=== PATIENT | female | born 1965 | race Caucasian/White ===

== ENCOUNTER 2020-10-01 18:21 | Emergency (ER) | payer BC, OTHER ==
[~2020-10-01] VITALS: Ht 182.9 cm; Wt 118.0 kg
[2020-10-01] MEDS ORDERED: GELATIN SPONGE SIZE 12-7MM SPONGE. ONE (18:41)
[2020-10-01] MEDS ORDERED: EPINEPHrine SYRINGE 1 MG/10 ML SYRINGE ONE (18:42)
[2020-10-01] MEDS ORDERED: ACETAMINOPHEN 500 MG TABLET PO ONE (19:15)
[2020-10-01] MEDS ORDERED: FAMOTIDINE 20 MG/2 ML VIAL IVP ONE (19:15)
[2020-10-01] MEDS ORDERED: diphenhydrAMINE 50 MG/ML VIAL IV ONE (19:15)
[2020-10-01] MEDS ORDERED: IV RINGERS SOLUTION,LACTATED 1,000 ML IV SCH (19:15)
[2020-10-01] MEDS ORDERED: MORPHINE SULFATE 10 MG/ML SYRINGE. SQ ONE (19:15)
[2020-10-01 19:22] LABS: BASO # 0.2 x10^3/uL (0.0-0.2); BASO % 1 % (0-3); EOS # 0.7 x10^3/uL (0.0-0.7); EOS % 5 % (0-3); HEMATOCRIT 37.2 % (36.0-47.0); HEMOGLOBIN 12.5 g/dL (12.0-15.5); LYMPH # 4.3 x10^3/uL (1.0-4.8); LYMPH % 29 % (24-48); MEAN CORPUSCULAR HEMOGLOBIN 30 pg (25-35); MEAN CORPUSCULAR HGB CONC 34 g/dL (31-37); MEAN CORPUSCULAR VOLUME 90 fL (79-100); MONO # 1.3 x10^3/uL (0.0-1.1); MONO % 9 % (0-9); NEUT # 8.4 x10^3uL (1.8-7.7); NEUT % 56 % (31-73); PLATELET COUNT 342 x10^3/uL (140-400); RED BLOOD COUNT 4.16 x10^6/uL (3.50-5.40); RED CELL DISTRIBUTION WIDTH 14.3 % (11.5-14.5); WHITE BLOOD COUNT 14.8 x10^3/uL (4.0-11.0)
[2020-10-01 19:26] LABS: CALCIUM 9.6 mg/dL (8.5-10.1); GFR 57.8
[2020-10-01] MEDS: IV NORMAL SALINE 1,000ML 1,000 ML IV SCH ×2 (19:27→20:21)
[2020-10-01 19:32] LABS: ALBUMIN 3.7 g/dL (3.4-5.0); DIRECT BILIRUBIN 0.1 mg/dL (0.0-0.2); TOTAL BILIRUBIN 0.4 mg/dL (0.2-1.0); TOTAL PROTEIN 7.9 g/dL (6.4-8.2)
[2020-10-01] MEDS ORDERED: ONDANSETRON PF 4 MG/2 ML VIAL. ONE (19:41)
[2020-10-01] MEDS ORDERED: GELATIN SPONGE SIZE 12-7MM SPONGE. TP ONE (20:00)
[2020-10-01] MEDS ORDERED: TRANEXAMIC ACID 1,000 MG in IV NORMAL SALINE 250ML 250 ML IV ONE (20:00)
[2020-10-01] MEDS ORDERED: TRANEXAMIC ACID 1,000 MG/10 ML VIAL. ONE (20:02)
[2020-10-01] MEDS ORDERED: IV NORMAL SALINE 250ML 250 ML ONE (20:02)
[2020-10-01 21:06] VITALS: BP 142/69
[2020-10-01] MEDS ORDERED: ONDANSETRON PF 4 MG/2 ML VIAL. IVP ONE (21:15)
[2020-10-01 21:21] VITALS: BP 150/75
[2020-10-01 21:34] LABS: BASO # 0.1 x10^3/uL (0.0-0.2); BASO % 1 % (0-3); EOS # 0.6 x10^3/uL (0.0-0.7); EOS % 4 % (0-3); HEMATOCRIT 24.3 % (36.0-47.0); LYMPH # 5.2 x10^3/uL (1.0-4.8); LYMPH % 34 % (24-48); MEAN CORPUSCULAR HEMOGLOBIN 30 pg (25-35); MEAN CORPUSCULAR HGB CONC 33 g/dL (31-37); MEAN CORPUSCULAR VOLUME 91 fL (79-100); MONO # 1.4 x10^3/uL (0.0-1.1); MONO % 9 % (0-9); NEUT # 7.9 x10^3uL (1.8-7.7); NEUT % 52 % (31-73); PLATELET COUNT 287 x10^3/uL (140-400); RED BLOOD COUNT 2.66 x10^6/uL (3.50-5.40); RED CELL DISTRIBUTION WIDTH 14.6 % (11.5-14.5); WHITE BLOOD COUNT 15.3 x10^3/uL (4.0-11.0)
[2020-10-01 21:44] LABS: HEMOGLOBIN 7.9 g/dL (12.0-15.5)
[2020-10-01 22:12] LABS: % BANDS 70 % (0-9); % BASOS 6 % (0-3); % EOS 21 % (0-5); % MYELOS 3 % (0-0); PLT ESTIMATE ADEQUATE (ADEQUATE)
--- NOTE | 2020-10-02 01:54 | PHYS DOC ---
Past History Past Medical History: Asthma, Diabetes, High Cholesterol, Hypertension Past Surgical History: Other Additional Past Surgical Histo: Loop procedure Alcohol Use: None Drug Use: None General Adult EDM: Chief Complaint: POST-OP PROBLEM HPI: HPI: ".. I had a surgery to remove some abnormal cells on my cervical area after an abnormal Pap smear... My surgery was back on the 09/18 of last month.. Did have a little spotting but seemed to recover okay.. This week again a couple more times of spotting.... But I was just sitting there watching... My nice's so ftball game... And all of a sudden I felt my pants were wet.. I looked down and I had blood clear to my pants and onto the seat... And I ve been bleeding ever since..." " and now I am having some lower pelvic pain... My jeans were soaked in blood by the time I got here... It worst than any period .. I ve ever had...".." This crazy..." Patient is a 55 year old female who presents with acute onset of copious vaginal bleeding and lower abdomen cramping. Patient reportedly had a procedure the remove abnormal cells on her cervix on the 09/[address] Verma at [facility] on [facility]. Patient states they did have to dilate her cervix to get some area of abnormal cells. Reportedly initially everything went well with the surgery. Patient has no history of coagulopathy with her or family members. Patient does not use excessive NSAIDs. Patient not taking any over the counter medical supplements or herbal teas etc. Patient denies any trauma. Patient denies any sexual activity since surgery. Patient does have a history of diabetes and hypertension. Patient denies any history of STDs. Patient denies any history of immunosuppression. No recent travel. No history of fever or chills. Has followed with Dr. Simpson.. but primary is Dr. Mtz. Patient has soaked a blue pad with blood by the time I got into pt. room. Patient last ate a meal at noon. Review of Systems: Review of Systems: Constitutional: Denies fever or chills Eyes: Denies change in visual acuity HENT: Denies nasal congestion or sore throat Respiratory: Denies cough or shortness of breath Cardiovascular: Denies chest pain or edema GI: Complains of lower pelvic abdominal pain and that vaginal bleeding. Nausea, vomiting, bloody stools or diarrhea : Denies dysuria Musculoskeletal: Denies back pain or joint pain Integument: Denies rash Neurologic: Denies headache, focal weakness or sensory changes Endocrine: Denies polyuria or polydipsia Lymphatic: Denies swollen glands Psychiatric: Denies depression or anxiety Family History: Family History: Noncontributory Current Medications: Current Meds: Current Medications Medications (Trade) Dose Ordered Sig/Rosa Elena Start Time Stop Time Status Last Admin Dose Admin Acetaminophen (Tylenol) 1,000 mg 1X ONCE 10/01/20 19:15 10/01/20 19:23 DC 10/01/20 19:37 1,000 MG Diphenhydramine HCl (Benadryl) 50 mg 1X ONCE 10/01/20 19:15 10/01/20 19:23 DC 10/01/20 19:29 50 MG Epinephrine HCl (EPINEPHrine AMPULE) 1 mg 1X ONCE 10/01/20 19:15 10/01/20 19:22 DC 10/01/20 19:37 1 MG Epinephrine HCl (EPINEPHrine SYRINGE) 1 mg STK-MED ONCE 10/01/20 18:42 10/01/20 18:42 DC Famotidine (Pepcid Vial) 20 mg 1X ONCE 10/01/20 19:15 10/01/20 19:22 DC 10/01/20 19:28 20 MG Gelatin (Gelfoam Size 12-7mm) 1 each 1X ONCE 10/01/20 20:00 10/01/20 20:01 DC Lactated Ringer's 1,000 ml @ 1,000 mls/hr Q1H 10/01/20 19:15 10/01/20 20:14 DC 10/01/20 19:15 1,000 MLS/HR Morphine Sulfate (Morphine 10mg Syringe) 10 mg 1X ONCE 10/01/20 19:15 10/01/20 19:22 DC 10/01/20 19:36 10 MG Ondansetron HCl (Zofran) 8 mg 1X ONCE 10/01/20 21:15 10/01/20 21:17 DC 10/01/20 21:12 8 MG Sodium Chloride 250 ml @ As Directed STK-MED ONCE 10/01/20 20:02 10/01/20 20:02 DC Tranexamic Acid (Cyklokapron) 1,000 mg STK-MED ONCE 10/01/20 20:02 10/01/20 20:02 DC Tranexamic Acid 1000 mg/Sodium Chloride 260 ml @ 0 mls/hr 1X PERIOP ONCE 10/01/20 20:00 10/01/20 20:01 DC 10/01/20 20:16 500 MLS/HR Allergies: Allergies: Allergies Coded Allergies Type Severity Reaction Last Updated Verified codeine Allergy Intermediate rash 02/06/14 No Physical Exam: PE: Constitutional: in acute distress, non-toxic appearance. [] HENT: Normocephalic, atraumatic, bilateral external ears normal, oropharynx moist, no oral exudates, nose normal. [] Eyes: PERRLA, EOMI, conjunctiva normal, no discharge. [] Neck: Normal range of motion, no tenderness, supple, no stridor. [] Cardiovascular: Tachycardia heart rate regular rhythm, no murmur [] Lungs & Thorax: Bilateral breath sounds equal apex with scattered wheezes on auscultation [] Abdomen: Bowel sounds decreased, soft, lower pelvic tenderness, no masses, no pulsatile masses. Pelvic exam shows copious arterial bleeding from os. No rectal bleeding. Did use Gelfoam and a Kerlix gauze soaked in 1 amp of e pinephrine to pack vaginal area. Patient did continue to bleed around packing. Patient continued to soak through ABD pads. Skin: Warm, dry, no erythema, no rash. No petechiae. No excessive ecchymosis. Pale. Back: No tenderness, no CVA tenderness. [] Extremities: No tenderness, no cyanosis, no clubbing, ROM intact, no edema. [] Neurologic: Alert and oriented X 3, normal motor function, normal sensory function, no focal deficits noted. [] Psychologic: Affect anxious, judgement normal, mood normal. [] Current Patient Data: Labs: Laboratory Tests Test 10/01/20 18:31 10/01/20 21:00 White Blood Count 14.8 x10^3/uL (4.0-11.0) H 15.3 x10^3/uL (4.0-11.0) H Red Blood Count 4.16 x10^6/uL (3.50-5.40) 2.66 x10^6/uL (3.50-5.40) L Hemoglobin 12.5 g/dL (12.0-15.5) 7.9 g/dL (12.0-15.5) #L Hematocrit 37.2 % (36.0-47.0) 24.3 % (36.0-47.0) L Mean Corpuscular Volume 90 fL (79-100) 91 fL (79-100) Mean Corpuscular Hemoglobin 30 pg (25-35) 30 pg (25-35) Mean Corpuscular Hemoglobin Concent 34 g/dL (31-37) 33 g/dL (31-37) Red Cell Distribution Width 14.3 % (11.5-14.5) 14.6 % (11.5-14.5) H Platelet Count 342 x10^3/uL (140-400) 287 x10^3/uL (140-400) Neutrophils (%) (Auto) 56 % (31-73) 52 % (31-73) Lymphocytes (%) (Auto) 29 % (24-48) 34 % (24-48) Monocytes (%) (Auto) 9 % (0-9) 9 % (0-9) Eosinophils (%) (Auto) 5 % (0-3) H 4 % (0-3) H Basophils (%) (Auto) 1 % (0-3) 1 % (0-3) Neutrophils # (Auto) 8.4 x10^3uL (1.8-7.7) H 7.9 x10^3uL (1.8-7.7) H Lymphocytes # (Auto) 4.3 x10^3/uL (1.0-4.8) 5.2 x10^3/uL (1.0-4.8) H Monocytes # (Auto) 1.3 x10^3/uL (0.0-1.1) H 1.4 x10^3/uL (0.0-1.1) H Eosinophils # (Auto) 0.7 x10^3/uL (0.0-0.7) 0.6 x10^3/uL (0.0-0.7) Basophils # (Auto) 0.2 x10^3/uL (0.0-0.2) 0.1 x10^3/uL (0.0-0.2) Prothrombin Time 9.7 SEC (9.4-11.4) Prothrombin Time INR 0.9 (0.9-1.1) Activated Partial Thromboplast Time 28 SEC (23-33) Sodium Level 139 mmol/L (136-145) Potassium Level 4.0 mmol/L (3.5-5.1) Chloride Level 104 mmol/L (98-107) Carbon Dioxide Level 23 mmol/L (21-32) Anion Gap 12 (6-14) Blood Urea Nitrogen 14 mg/dL (7-20) Creatinine 1.0 mg/dL (0.6-1.0) Estimated GFR (Cockcroft-Gault) 57.8 Glucose Level 133 mg/dL (70-99) H Calcium Level 9.6 mg/dL (8.5-10.1) Total Bilirubin 0.4 mg/dL (0.2-1.0) Direct Bilirubin 0.1 mg/dL (0.0-0.2) Aspartate Amino Transferase (AST) 35 U/L (15-37) Alanine Aminotransferase (ALT) 69 U/L (14-59) H Alkaline Phosphatase 170 U/L (46-116) H Total Protein 7.9 g/dL (6.4-8.2) Albumin 3.7 g/dL (3.4-5.0) Band Neutrophils % 70 % (0-9) H Eosinophils % 21 % (0-5) H Basophils % 6 % (0-3) H Myelocytes % 3 % (0-0) H Platelet Estimate Adequate (ADEQUATE) Vital Signs: Vital Signs Date Time Temp Pulse Resp B/P (MAP) Pulse Ox O2 Delivery O2 Flow Rate FiO2 10/01/20 21:21 97.8 71 19 150/75 10/01/20 20:46 95 10/01/20 19:36 Room Air EKG: EKG: [] Radiology/Procedures: Radiology/Procedures: [] Heart Score: C/O Chest Pain: N/A Risk Factors: Risk Factors: DM, Current or recent (<one month) smoker, HTN, HLP, family history of CAD, obesity. Risk Scores: Score 0 - 3: 2.5% MACE over next 6 weeks - Discharge Home Score 4 - 6: 20.3% MACE over next 6 weeks - Admit for Clinical Observation Score 7 - 10: 72.7% MACE over next 6 weeks - Early Invasive Strategies Course & Med Decision Making: Course & Med Decision Making Pertinent Labs and Imaging studies reviewed. (See chart for details) Patient was started on 2 large-bore IVs and given boluses of fluid for hypotension. Give 250 of TXA IV. Patient did receive 1 unit of packed RBCs. Discussed presentation testing and treatment plan with Dr. Rodriguez, contact center specialist for Dr. Verma Systems Test Engineer. Advised she will see patient on arrival to the ED at [facility] at [facility]. The emergency room doctor at [facility] also arrived of the transfer to the [facility] at [facility]. Critical Care - 90 min. Impression: 1. Acute bleeding at - prior post op site cervix- 09/18 2. History of abnormal cells on previous Pap exam 3. History of diabetes-glucose tonight is 133 4. Mild elevation in ALT 69 and alk phos 170 5. Hypotension 6. Mild Leukocytosis- 14.8- repeat 15.3, in crease to 70 Bands. 7. Anemia - Initial Hgb- normal 12.5, at time Transfer- Hgb 7.9 [] Dragon Disclaimer: Dragon Disclaimer: This electronic medical record was generated, in whole or in part, using a voice recognition dictation system. Departure Departure: Impression: Primary Impression: Post-op bleeding Disposition: 02 SHORT TERM HOSPITAL Condition: CRITICAL Referrals: CHEYENNE MTZ MD (PCP) Patient Instructions: Hypotension, [id number] Additional Instructions: Transfer to [facility]- Dr. Rodriguez accepting. MANUEL RAGLAND MD October 02, 2020 01:54
[2020-10-02] MEDS ORDERED: TRANEXAMIC ACID 1,000 MG in IV NORMAL SALINE 250ML 250 ML IV ONE (06:00)
== END 2020-10-01 21:33 | disposition short-term general hospital (02) ==
LOC: ER 18:21
DX: N99.820 Postprocedural hemorrhage of a genitourinary system organ or structure following a genitourinary system procedure (principal); D64.9 Anemia, unspecified; D72.829 Elevated white blood cell count, unspecified; I95.9 Hypotension, unspecified; R79.89 Other specified abnormal findings of blood chemistry; R11.2 Nausea with vomiting, unspecified; E11.9 Type 2 diabetes mellitus without complications; J45.909 Unspecified asthma, uncomplicated; E78.00 Pure hypercholesterolemia, unspecified; I10 Essential (primary) hypertension; Z88.5 Allergy status to narcotic agent
CPT/HCPCS: 36415; 36430; 80048; 80076; 85007; 85025; 85610; 85730; 86850; 86900; 86901; 86920; 96361; 96365; 96372; 96374; 96375; 99285; J0171; J1200; J2270; J2405; J3490; J7030; J7050; J7120; P9016

== ENCOUNTER 2021-02-22 15:48 | Emergency (ER) | payer BC ==
[~2021-02-22] VITALS: Ht 182.9 cm; Wt 118.0 kg
[2021-02-22] MEDS ORDERED: ONDANSETRON ODT 4 MG TAB.RAPDIS PO ONE (17:00)
--- NOTE | 2021-02-22 17:05 | PHYS DOC ---
Past History Past Medical History: Asthma, Diabetes, High Cholesterol, Hypertension (KG PEREZ APRN) Past Surgical History: Appendectomy, Cholecystectomy, Other Additional Past Surgical Histo: Loop procedure (KG PEREZ APRN) Alcohol Use: None Drug Use: None (KG PEREZ APRN) General Adult EDM: Chief Complaint: COUGH HPI: HPI: Patient is a 56-year-old female who presents with cough, fever, nause a/vomiting/diarrhea. Patient states "I was exposed to Covid on Thursday". Patient's temperature at home was 102. Patient states she took ibuprofen 1 hour ago. Patient is afebrile on arrival. Denies chest pain, shortness of breath. History of asthma, hypertension, diabetes (KG PEREZ APRN) Review of Systems: Review of Systems: ROS At least 10 ROS systems have been reviewed and are negative except as documented in the HPI. General: Negative except as outlined in HPI above. Skin: Negative except as outlined in HPI above. HEENT: Negative except as outlined in HPI above. Neck: Negative except as outlined in HPI above. Respiratory: Negative except as outlined in HPI above.. Cardiovascular: Negative except as outlined in HPI above. Abdomen: Negative except as outlined in HPI above. : Negative except as outlined in HPI above. Back/MSK: Negative except as outlined in HPI above. Neuro: Negative except as outlined in HPI above. Psych: Negative except as outlined in HPI above. (KG PEREZ APRN) Current Medications: Current Meds: Current Medications Medications (Trade) Dose Ordered Sig/Rosa Elena Start Time Stop Time Status Last Admin Dose Admin Ondansetron HCl (Zofran Odt) 4 mg 1X ONCE 02/22/21 17:00 02/22/21 17:01 UNV (KG PEREZ APRN) Allergies: Allergies: Allergies Coded Allergies Type Severity Reaction Last Updated Verified codeine Allergy Intermediate rash 02/06/14 No (KG PEREZ APRN) Physical Exam: PE: Constitutional: Well developed, well nourished, no acute distress, non-toxic appearance. [] HENT: Normocephalic, atraumatic, bilateral external ears normal, oropharynx moist, no oral exudates, nose normal. [] Eyes: PERRLA, EOMI, conjunctiva normal, no discharge. [] Neck: Normal range of motion, no tenderness, supple, no stridor. [] Cardiovascular:Heart rate regular rhythm, no murmur [] Lungs & Thorax: Bilateral breath sounds clear to auscultation [] Abdomen: Bowel sounds normal, soft, no tenderness, no masses, no pulsatile masses. [] Skin: Warm, dry, no erythema, no rash. [] Back: No tenderness, no CVA tenderness. [] Extremities: No tenderness, no cyanosis, no clubbing, ROM intact, no edema. [] Neurologic: Alert and oriented X 3, normal motor function, normal sensory function, no focal deficits noted. [] Psychologic: Affect normal, judgement normal, mood normal. [] (KG PEREZ APRN) Current Patient Data: Vital Signs: Vital Signs Date Time Temp Pulse Resp B/P (MAP) Pulse Ox O2 Delivery O2 Flow Rate FiO2 02/22/21 15:52 98.8 91 16 123/91 (102) 96 Room Air (KG PEREZ APRN) EKG: EKG: [] (KG PEREZ APRN) Radiology/Procedures: Radiology/Procedures: []XR CHEST 1V CLINICAL INDICATIONS: Reason: SHORTNESS OF BREATH, COUGH / Spl. Instructions: / History: COMPARISON: February 06, 2014. Findings: No acute lung infiltrate or pleural effusion or pulmonary edema or lung mass or pneumothorax is seen. The heart size, pulmonary vasculature, mediastinum and both srikanth are unremarkable. IMPRESSION: No acute radiographic abnormality is seen. Electronically signed by: Martin Yarbrough MD (02/22/2021 5:48 PM) [id number] (KG PEREZ APRN) Heart Score: C/O Chest Pain: No Risk Factors: Risk Factors: DM, Current or recent (<one month) smoker, HTN, HLP, family history of CAD, obesity. Risk Scores: Score 0 - 3: 2.5% MACE over next 6 weeks - Discharge Home Score 4 - 6: 20.3% MACE over next 6 weeks - Admit for Clinical Observation Score 7 - 10: 72.7% MACE over next 6 weeks - Early Invasive Strategies (KG PEREZ APRN) Course & Med Decision Making: Course & Med Decision Making Pertinent Labs and Imaging studies reviewed. (See chart for details) [] 56-year-old female presents with cough, fever, nausea/vomiting/diarrhea that started yesterday. Patient was exposed to multiple coworkers on Thursday that were positive for Covid. Patient took ibuprofen for fever before arrival. Patient is hemodynamically stable. Afebrile. Chest x-ray ordered to rule out pneumonia. Patient tested for Covid. Chest x-ray is unremarkable. Discussed results with patient. Advised patient she needs to quarantine until she receives Covid results. Ibuprofen and Tylenol for fever and discomfort. Patient sent home with albuterol, Medrol Dosepak, Zofran. Make sure you are drinking plenty of fluids. Patient is appreciative and okay with discharge plan. (KG PEREZ APRN) Dragon Disclaimer: Dragon Disclaimer: This electronic medical record was generated, in whole or in part, using a voice recognition dictation system. (KG PEREZ APRN) Departure Departure: Impression: Primary Impression: Person under investigation for COVID-19 Additional Impressions: Nausea vomiting and diarrhea Fever Qualified Codes: R50.9 - Fever, unspecified Disposition: HOME / SELF CARE / HOMELESS Condition: STABLE Referrals: CHEYENNE MTZ MD (PCP) Patient Instructions: Nausea and Vomiting, [id number] Additional Instructions: EMERGENCY DEPARTMENT GENERAL DISCHARGE INSTRUCTIONS Thank you for coming to [facility] (ED) today and trusting us with you care. We trust that you had a positivie experience in our Emergency Department. If you wish to speak to the department management, you may call the director at . YOUR FOLLOW UP INSTRUCTIONS ARE FOLLOWS: 1. Do you have a private Doctor? If you do not have a private doctor, please ask for a resource list of physicians or clinics that may be able to assist you with follow up care. 2. The Emergency Physician has interpreted your x-rays. The X-Ray specialist will also review them. If there is a change in the findings, you will be notified in 48 hours when at all possible. 3. A lab test or culture has been done, your results will be reviewed and you will be notified if you need a change in treatment. ADDITIONAL INSTRUCTIONS AND INFORMATION: 1. Your care today has been supervised by a physician who is specially trained in emergency care. Many problems require more than one evaluation for a complete diagnosis and treatment. We recommend that you schedule your follow up appointment as recommended to ensure complete treatment of you illness or injury. If you are unable to obtain follow up care and continue to have a problem, or if your condition worsens, we recommend that you return to the ED. 2. We are not able to safely determine your condition over the phone nor are we able to give sound medical advice over the phone. For these safety reasons, if you call for medical advice we will ask you to come to the ED for further evaluation. 3. If you have any questions regarding these discharge instructions please call the ED at [phone]. SAFETY INFORMATION: In the interest of safety, wellness, and injury prevention; we encourage you to wear your sealbelt, if you smoke; quite smoking, and we encourage family to use a protective helmet for bicycling and other sporting events that present an increased risk for head injury. IF YOUR SYMPTOMS WORSEN OR NEW SYMPTOMS DEVELOP, OR YOU HAVE CONCERNS ABOUT YOUR CONDITION; OR IF YOUR CONDITION WORSENS WHILE YOU ARE WAITING FOR YOUR FOLLOW UP APPOINTMENT; EITHER CONTACT YOUR PRIMARY CARE DOCTOR, THE PHYSICIAN WHOSE NAME AND NUMBER YOU WERE GIVEN, OR RETURN TO THE ED IMMEDIATELY. You have been tested for or diagnosed with COVID-19. It is an infection caused by a new type of coronavirus. COVID-19 will cause cold-like or mild flu symptoms in most. It can cause more severe symptoms like problems breathing in some. There is no treatment for COVID-19. The body will clear the infection over time. Self-care will help to ease discomfort. Steps to Take: Self-Care Rest as needed. Healthy habits may help you feel better. Steps include: Choose healthy foods including fruits and vegetables. Drink water throughout the day. Get plenty of sleep each night. If you smoke, try to quit. It may ease breathing. Avoid alcohol. Keep Others Healthy The virus can spread to others. Droplets are released every time you sneeze or cough. The droplets can get into the mouth, nose, or eyes of people near you and lead to infection. To lower the chances of spreading COVID-19 to others: Stay at home until your doctor has said it is safe to leave. If you tested positive this will mean staying isolated until both of the following are true: At least 7 days have passed since the start of illness. You are free of fever for at least 72 hours without the use of medicine. During this time: - Avoid public areas, events, or transportation. Do not return to work or school until your doctor has said it is safe to do so. - Call ahead if you need to go to a medical center. Let them know you may have COVID-19. It will help them guide you where to go. They may also ask you to wear a facemask when you come to the office. - If you call for emergency medical services, let them know you may have COVID- 19. While at home: - Try to avoid close contact with others. Stay about 6 feet away. - If possible, spend most of your time in a separate room from others. - Use a face mask if you will be in close contact with others such as sharing a room or vehicle. - Have someone wipe down common surfaces in the home. Use household clamp carrier operator every day on areas like doorknobs, counters, or sinks. - Cough or sneeze into a tissue. Throw the tissue away right after use. If a tissue is not available, cough or sneeze into your elbow. - Wash your hands often. Wash them after sneezing or coughing. Use soap and water and wash for at least 20 seconds. Alcohol based hand engine cleaner can be used if soap and water is not available. - Do not prepare food for others. Avoid sharing personal items like forks, spoons, or toothbrushes. - Avoid close contact with pets while you are sick. There is no evidence of the virus passing to pets. This is a safety step until more is known about this virus. Isolation can be frustrating. Social interaction can help. Keep in touch with friends and family through phone and tech options. You can still interact with others in your home, just keep a safe distance of about 6 feet. Follow-up: Your doctors office will check in with you to see if there are any changes in your health. You may be asked to keep track of symptoms to share with them. They will also let you know when you are clear to be in public again. Problems to Look Out For: Contact your doctor if your recovery is not going as you expect. Get emergency care if you have problems such as: - Trouble breathing - Nonstop chest pain or pressure - Changes in awareness, confusion, or problems waking - Lips or face have bluish color - Worsening of symptoms If you think you have an emergency, call for emergency medical services right away. As taken from [facility] Albuterol Sulfate (PROAIR HFA INHALER) 8.5 Gm Hfa.aer.ad 2 PUFF IH PRN Q4-6HRS PRN for wheezing for 21 Days, #1 INHALER 0 Refills as needed for wheezing Prov: KG PEREZ APRN 02/22/21 Methylprednisolone (MEDROL) 4 Mg Tab.ds.pk 1 PKG PO UD for inflammation for 6 Days, #1 PKG 0 Refills Prov: KG PEREZ APRN 02/22/21 Attending Signature Attending Signature I have reviewed the PA/FELT TIPPING MACHINE TENDER's note and plan of care. I was available for consultation as needed during the patient's visit in the emergency department. I agree with the clinical impression, plan, and disposition. (RAFAEL MARTINEZ DO) KG PEREZ APRN Feb 22, 2021 17:05 RAFAEL MARTINEZ DO Feb 22, 2021 21:31
[2021-02-22 17:50] LABS: INFLUENZA A PATIENT NEGATIVE (NEGATIVE); INFLUENZA B PATIENT NEGATIVE (NEGATIVE)
--- NOTE | 2021-02-22 17:50 | RAD ---
XR CHEST 1V CLINICAL INDICATIONS: Reason: SHORTNESS OF BREATH, COUGH / Spl. Instructions: / History: COMPARISON: February 06, 2014. Findings: No acute lung infiltrate or pleural effusion or pulmonary edema or lung mass or pneumothora x is seen. The heart size, pulmonary vasculature, mediastinum and both srikanth are unremarkable. IMPRESSION: No acute radiographic abnormality is seen. Electronically signed by: Martin Yarbrough MD (02/22/2021 5:48 PM) [id number]
[2021-02-22] MEDS ORDERED: ALBU2.5V8 IH (18:12)
[2021-02-22] MEDS ORDERED: METH4TAB2 PO (18:12)
[2021-02-22 18:27] VITALS: BP 115/68
--- NOTE | 2021-02-24 19:09 | NUR ---
IP: Patient notified of negative COVID19 test result. Verbalized understanding.
== END 2021-02-22 18:28 | disposition home or self-care (01) ==
LOC: ER 15:52
DX: R11.2 Nausea with vomiting, unspecified (principal); R19.7 Diarrhea, unspecified; E78.5 Hyperlipidemia, unspecified; I10 Essential (primary) hypertension; Z20.822 Contact with and (suspected) exposure to COVID-19; Z88.5 Allergy status to narcotic agent; Z90.49 Acquired absence of other specified parts of digestive tract
CPT/HCPCS: 71045; 87804; 99283; C9803; Q0162; U0003